=== PATIENT | male | born 1945 | race Caucasian/White ===

== ENCOUNTER 2019-02-15 21:22 | Emergency (ER) | payer MEDICARE, OTHER ==
[~2019-02-15] VITALS: Ht 172.7 cm; Wt 97.5 kg
[2019-02-15 22:38] LABS: BASOPHILS ABSOLUTE AUTO 0.06 K/mm3 (0.00-0.23); BASOPHILS PERCENT AUTO 1 % (0-2); EOSINOPHILS ABSOLUTE AUTO 0.03 K/mm3 (0.00-0.68); EOSINOPHILS PERCENT AUTO 1 % (0-6); Hematocrit 39.8 % (37.0-53.0); Hemoglobin 13.4 g/dL (13.5-17.5); IMMATURE GRAN ABSOLUTE AUTO 0.02 K/mm3 (0.00-0.10); IMMATURE GRAN PERCENT AUTO 0 % (0-1); LYMPHOCYTES ABSOLUTE AUTO 0.32 K/mm3 (0.84-5.20); LYMPHOCYTES PERCENT AUTO 5 % (21-46); MONOCYTES PERCENT AUTO 10 % (4-13); Mean Corpuscular HGB 32.1 pg (26.0-34.0); Mean Corpuscular HGB Conc 33.7 g/dL (31.5-36.5); Mean Corpuscular Volume 95 fL (80-100); Mean Platelet Volume 12.7 fL (9.1-12.4); NEUTROPHILS PERCENT AUTO 83 % (41-73); Platelet Count 67 K/mm3 (150-400); RDW Coefficient Variation 13.5 % (11.7-14.2); Red Blood Cell Count 4.17 M/mm3 (4.30-5.90); White Blood Cell Count 5.93 K/mm3 (4.00-11.30)
[2019-02-15 22:58] LABS: Alanine Aminotransfer (ALT/SGP 35 U/L (12-78); Albumin, Blood 3.2 g/dL (3.4-5.0); Albumin/Globulin Ratio 0.9 (0.8-1.8); Alk Phos 135 U/L (50-136); Anion Gap 9 mmol/L (6-16); Aspartate Aminotrans (AST/SGOT 40 U/L (12-37); Bilirubin, Total 2.5 mg/dL (0.1-1.0); Blood Urea Nitrogen 33 mg/dL (8-24); Bun/Creatinine Ratio 19.1 (12.0-20.0); CO2, Blood 19 mmol/L (21-32); Calcium, Blood 9.5 mg/dL (8.5-10.1); Chloride, Blood 108 mmol/L (98-108); Creatinine, Blood 1.73 mg/dL (0.60-1.20); Globulin, Blood 3.5 g/dL (2.2-4.0); Glomerular Filtration Rate 41 (60-); Glucose, Blood 154 mg/dL (70-99); Potassium, Blood 4.4 mmol/L (3.5-5.5); Sodium, Blood 136 mmol/L (136-145); Total Protein, Blood 6.7 g/dL (6.4-8.2)
[2019-02-15] MEDS ORDERED: LISI5 PO (23:09)
[2019-02-15] MEDS ORDERED: GLIP5 PO (23:09)
[2019-02-15] MEDS ORDERED: FUROSEMIDE20 MG PO (23:10)
[2019-02-15] MEDS ORDERED: POTA8 PO (23:10)
[2019-02-15] MEDS ORDERED: Metoprolol-Hct1 EAC1 PO (23:10)
[2019-02-15] MEDS ORDERED: OMEP20ER PO (23:10)
[2019-02-16 00:40] LABS: Magnesium, Blood 1.4 mg/dL (1.6-2.4); Troponin I <0.015 ng/mL (0.000-0.040)
[2019-02-16 02:19] LABS: Source, Urine Clean Catch
[2019-02-16 02:23] LABS: Bilirubin, Urine Neg (Neg); Blood, Urine 2+ (Neg); Glucose Qualitative, Urine Neg (Neg); Ketones, Urine Neg (Neg); Leukocyte Esterase, Urine 3+ (Neg); Nitrite, Urine Neg (Neg); Protein, Urine 1+ (Neg); Urobilinogen, Urine NORM (Normal); pH, Urine 6.5 (5.0-8.0)
[2019-02-16 02:32] LABS: Amorphous Mod (0-Heavy); Appearance, Urine Hazy (Clear); Bacteria Many /hpf; Color, Urine Yellow (P-Yellow); Red Blood Cells, Urine 0-2 /hpf (0-2); Squamous Epithelial Cells Few /hpf (Few); White Blood Cells, Urine 25-50 /hpf (0-5)
[2019-02-16] MEDS ORDERED: CEFD300 PO (03:04)
== END 2019-02-16 03:47 | disposition home or self-care (01) ==
LOC: ER 21:22
PROVIDERS: Emergency Medicine
DX: N39.0 Urinary tract infection, site not specified (principal); E86.0 Dehydration; R53.1 Weakness; Z85.51 Personal history of malignant neoplasm of bladder; Z88.2 Allergy status to sulfonamides; Z79.899 Other long term (current) drug therapy
CPT/HCPCS: 36415; 71046; 80053; 81001; 83605; 83690; 83735; 83880; 84145; 84443; 84484; 85025; 87077; 87086; 87186; 93005; 93010; 96361; 96365; 96367; 99285-25; J0696; J3475; J7030

== ENCOUNTER → 2019-02-24 | Outpatient (CLI) | payer MEDICARE, OTHER ==
[~2019-02-24] MED LIST: CEFD300 PO; FUROSEMIDE20 MG PO; GLIP5 PO; LISI5 PO; Metoprolol-Hct1 EAC1 PO; OMEP20ER PO; POTA8 PO
[2019-02-24 19:32] LABS: BASOPHILS PERCENT AUTO 2 % (0-2); EOSINOPHILS ABSOLUTE AUTO 0.43 K/mm3 (0.00-0.68); EOSINOPHILS PERCENT AUTO 8 % (0-6); Hematocrit 36.6 % (37.0-53.0); Hemoglobin 12.5 g/dL (13.5-17.5); IMMATURE GRAN ABSOLUTE AUTO 0.04 K/mm3 (0.00-0.10); IMMATURE GRAN PERCENT AUTO 1 % (0-1); LYMPHOCYTES ABSOLUTE AUTO 0.62 K/mm3 (0.84-5.20); LYMPHOCYTES PERCENT AUTO 11 % (21-46); MONOCYTES ABSOLUTE AUTO 0.35 K/mm3 (0.16-1.47); MONOCYTES PERCENT AUTO 6 % (4-13); Mean Corpuscular HGB 32.3 pg (26.0-34.0); Mean Corpuscular HGB Conc 34.2 g/dL (31.5-36.5); Mean Corpuscular Volume 95 fL (80-100); Mean Platelet Volume 12.1 fL (9.1-12.4); NEUTROPHILS PERCENT AUTO 72 % (41-73); Platelet Count 112 K/mm3 (150-400); RDW Coefficient Variation 13.5 % (11.7-14.2); RDW Standard Deviation 46.5 fL (35.1-46.3); Red Blood Cell Count 3.87 M/mm3 (4.30-5.90); White Blood Cell Count 5.44 K/mm3 (4.00-11.30)
[2019-02-24 20:51] LABS: Bun/Creatinine Ratio 20.3 (12.0-20.0); Calcium, Blood 8.4 mg/dL (8.5-10.1); Creatinine, Blood 1.33 mg/dL (0.60-1.20); Potassium, Blood 4.5 mmol/L (3.5-5.5)
== END | disposition home or self-care (01) ==
LOC: LAB SHORT 18:18 → LAB 18:18
PROVIDERS: Hospitalist
DX: N17.9 Acute kidney failure, unspecified (principal); D69.6 Thrombocytopenia, unspecified
CPT/HCPCS: 80048; 85025

== ENCOUNTER 2019-05-22 07:42 | Day surgery (SDC) | payer OTHER ==
[~2019-05-22] VITALS: Ht 172.7 cm; Wt 94.8 kg
[~2019-05-22 07:42] MED LIST changes: +Aspirin EC81 MG PO; +Vitamin D2000 UNIT PO
== END 2019-05-22 10:56 | disposition home or self-care (01) ==
LOC: ORSCSDS 07:42
PROVIDERS: Internal Medicine Gastroenterology
PROC: 0DBL8ZX Excision of Transverse Colon, Via Natural or Artificial Opening Endoscopic, Diagnostic (ICD-10-PCS; principal; 2019-05-22 09:00)
PROC: 0DB58ZX Excision of Esophagus, Via Natural or Artificial Opening Endoscopic, Diagnostic (ICD-10-PCS; principal; 2019-05-22 09:00)
PROC: 0DBN8ZX Excision of Sigmoid Colon, Via Natural or Artificial Opening Endoscopic, Diagnostic (ICD-10-PCS; principal; 2019-05-22 09:00)
PROC: 0DBP8ZX Excision of Rectum, Via Natural or Artificial Opening Endoscopic, Diagnostic (ICD-10-PCS; principal; 2019-05-22 09:00)
PROC: 0DBM8ZX Excision of Descending Colon, Via Natural or Artificial Opening Endoscopic, Diagnostic (ICD-10-PCS; principal; 2019-05-22 09:00)
DX: K22.70 Barrett's esophagus without dysplasia (principal); Z86.010 Personal history of colon polyps; D12.3 Benign neoplasm of transverse colon; D12.4 Benign neoplasm of descending colon; K63.5 Polyp of colon; K62.1 Rectal polyp; K44.9 Diaphragmatic hernia without obstruction or gangrene; K76.6 Portal hypertension; K31.89 Other diseases of stomach and duodenum; K74.60 Unspecified cirrhosis of liver; E11.42 Type 2 diabetes mellitus with diabetic polyneuropathy; E11.22 Type 2 diabetes mellitus with diabetic chronic kidney disease; I12.9 Hypertensive chronic kidney disease with stage 1 through stage 4 chronic kidney disease, or unspecified chronic kidney disease; N18.3 Chronic kidney disease, stage 3 (moderate); Z79.84 Long term (current) use of oral hypoglycemic drugs; Z79.899 Other long term (current) drug therapy; Z79.82 Long term (current) use of aspirin
CPT/HCPCS: 82947; 88305; J2250; J2704; J7120

== ENCOUNTER 2020-03-21 13:01 | Inpatient (IN) | payer OTHER ==
[~2020-03-21] VITALS: Ht 180.3 cm; Wt 97.5 kg
[2020-03-21 13:23] LABS: Source, Urine Catheter
[2020-03-21 13:32] LABS: Appearance, Urine Turbid (Clear); Bilirubin, Urine Neg (Neg); Blood, Urine 2+ (Neg); Color, Urine Yellow (P-Yellow); Glucose Qualitative, Urine Neg (Neg); Ketones, Urine Neg (Neg); Leukocyte Esterase, Urine 3+ (Neg); Nitrite, Urine Neg (Neg); Protein, Urine 1+ (Neg); Urobilinogen, Urine 1+ (Normal)
[2020-03-21 13:33] LABS: BASOPHILS ABSOLUTE AUTO 0.04 K/mm3 (0.00-0.23); BASOPHILS PERCENT AUTO 1 % (0-2); EOSINOPHILS ABSOLUTE AUTO 0.06 K/mm3 (0.00-0.68); EOSINOPHILS PERCENT AUTO 2 % (0-6); Hematocrit 38.6 % (37.0-53.0); Hemoglobin 12.7 g/dL (13.5-17.5); IMMATURE GRAN ABSOLUTE AUTO 0.01 K/mm3 (0.00-0.10); IMMATURE GRAN PERCENT AUTO 0 % (0-1); LYMPHOCYTES ABSOLUTE AUTO 0.22 K/mm3 (0.84-5.20); LYMPHOCYTES PERCENT AUTO 7 % (21-46); MONOCYTES ABSOLUTE AUTO 0.31 K/mm3 (0.16-1.47); MONOCYTES PERCENT AUTO 9 % (4-13); Mean Corpuscular HGB 30.8 pg (26.0-34.0); Mean Corpuscular HGB Conc 32.9 g/dL (31.5-36.5); Mean Corpuscular Volume 94 fL (80-100); Mean Platelet Volume 12.8 fL (9.1-12.4); NEUTROPHILS ABSOLUTE AUTO 2.72 K/mm3 (1.96-9.15); NEUTROPHILS PERCENT AUTO 81 % (41-73); Platelet Count 53 K/mm3 (150-400); RDW Coefficient Variation 14.5 % (11.7-14.2); RDW Standard Deviation 49.6 fL (35.1-46.3); Red Blood Cell Count 4.13 M/mm3 (4.30-5.90); White Blood Cell Count 3.36 K/mm3 (4.00-11.30)
[2020-03-21 13:45] LABS: Albumin, Blood 2.8 g/dL (3.4-5.0); Albumin/Globulin Ratio 0.9 (0.8-1.8); Bilirubin, Total 2.3 mg/dL (0.1-1.0); Bun/Creatinine Ratio 14.3 (12.0-20.0); Calcium, Blood 9.4 mg/dL (8.5-10.1); Creatinine, Blood 1.61 mg/dL (0.60-1.20); Potassium, Blood 4.2 mmol/L (3.5-5.5); Total Protein, Blood 5.8 g/dL (6.4-8.2)
[2020-03-21 13:45] LABS: Amorphous Light (0-Heavy); Bacteria Many /hpf; Mucus Light (0-Heavy); Red Blood Cells, Urine 0-2 /hpf (0-2); Squamous Epithelial Cells Not Seen /hpf (Few)
[2020-03-21] MEDS ORDERED: LISI5 PO (13:55)
[2020-03-21] MEDS ORDERED: GLIP5 PO (13:55)
[2020-03-21] MEDS ORDERED: METOPROLOL-HCT1 EACH PO (13:55)
[2020-03-21] MEDS ORDERED: POTA8 PO (13:56)
[2020-03-21] MEDS ORDERED: FURO20 PO (13:56)
[2020-03-21] MEDS ORDERED: OMEP20ER PO (13:56)
[2020-03-21 14:31] LABS: Base Excess Venous 0 mmol/L; PCO2 Venous 38.2 mmHg (38-42); PO2 Venous 38.8 mmHg (38-42); pH Blood Venous 7.42 (7.34-7.37)
[2020-03-21 14:44] LABS: International Normalized Ratio 1.17; Prothrombin Time Results 12.4 Sec (9.7-11.5)
[2020-03-21 15:43] LABS: U Amphetamine Screen Not Detected; U Barbituate Screen Not Detected; U Benzodiazapine Screen Not Detected; U Buprenorphine Screen Not Detected; U Cannabinoids Screen Not Detected; U Cocaine Screen Not Detected; U Methadone Screen Not Detected; U Methamphetamine Screen Not Detected; U Opiates Screen Not Detected; U Oxycodone Screen Not Detected; U Phencyclidine Screen Not Detected; U Propoxyphene Screen Not Detected
[2020-03-21 16:03] LABS: Influenza A, PCR Negative (NEGATIVE); Influenza B, PCR Negative (NEGATIVE); Resp Syncytial Virus, PCR Negative (NEGATIVE); SARS-Cov-2 (COVID-19) PCR, MMC Negative (NEGATIVE)
--- NOTE | 2020-03-21 22:26 | NUR ---
PT NEW ADMIT ARRIVED TO UNIT AT 1951 VIA STRETCHER. PT IS LETHARGIC, AROUSIBLE TO VOICE BUT TAKES SOME TIME TO RESPOND. A/O X0 AT THIS TIME. OPENS EYES SLOWLY WHEN STAFF TALKS TO HIM AND GOES BACK TO SLEEP. COOL WASHCLOTH APPLIED TO FOREHEAD, ROOM TEMP TURNED DOWN, ONLY THIN SHEET IN PLACE COVER. WILL CONTINUE TO MONITOR. BED ALARM IN PLACE, CALL LIGHT WITH REACH. 2215 PT APPEARS A LITTLE MORE ALERT. PT RESPONDS RIGHT AFTER WHEN CALLED COMPARED TO A DELAYED RESPONSE EARILER. TEMP ELEVATED TO 101.6. ICE PACK APPLIED TO BILATERAL AXILLARY, PO TYLENOL GIVEN. PT IS A/O X1 TO SELF. CONTINOUS IV NS INFUSION ORDERED. BED ALARM IN PLACE. WILL CONTINUE TO MONITOR.
[2020-03-22 05:37] LABS: BASOPHILS ABSOLUTE AUTO 0.03 K/mm3 (0.00-0.23); BASOPHILS PERCENT AUTO 1 % (0-2); EOSINOPHILS ABSOLUTE AUTO 0.09 K/mm3 (0.00-0.68); EOSINOPHILS PERCENT AUTO 3 % (0-6); Hematocrit 35.7 % (37.0-53.0); Hemoglobin 11.6 g/dL (13.5-17.5); IMMATURE GRAN ABSOLUTE AUTO 0.01 K/mm3 (0.00-0.10); IMMATURE GRAN PERCENT AUTO 0 % (0-1); LYMPHOCYTES ABSOLUTE AUTO 0.37 K/mm3 (0.84-5.20); LYMPHOCYTES PERCENT AUTO 14 % (21-46); MONOCYTES ABSOLUTE AUTO 0.29 K/mm3 (0.16-1.47); MONOCYTES PERCENT AUTO 11 % (4-13); Mean Corpuscular HGB Conc 32.5 g/dL (31.5-36.5); Mean Corpuscular Volume 96 fL (80-100); Mean Platelet Volume 12.9 fL (9.1-12.4); NEUTROPHILS ABSOLUTE AUTO 1.86 K/mm3 (1.96-9.15); NEUTROPHILS PERCENT AUTO 70 % (41-73); RDW Coefficient Variation 14.6 % (11.7-14.2); RDW Standard Deviation 51.3 fL (35.1-46.3); Red Blood Cell Count 3.74 M/mm3 (4.30-5.90); White Blood Cell Count 2.65 K/mm3 (4.00-11.30)
[2020-03-22 05:46] LABS: Platelet Count 44 K/mm3 (150-400)
[2020-03-22 05:58] LABS: Bun/Creatinine Ratio 17.1 (12.0-20.0); Calcium, Blood 8.3 mg/dL (8.5-10.1); Creatinine, Blood 1.64 mg/dL (0.60-1.20)
--- NOTE | 2020-03-22 07:16 | NUR ---
SHALE PROCESSING TECHNICIAN SUMMARY PT MUCH MORE A/O STARTING AROUND 0300. PT ABLE TO OPEN EYES SPONTANEOUSLY AND MAKE SENSIBLE CONVERSATION. ABLE TO COMMUNICATE NEEDS, SPEECH IS STILL SLOW AND SOMETIMES HAS HARD TIME COMING UP WITH THE RIGHT WORDS. PT KNOWS WHO HE IS, WHERE HE IS AT, MONTH, YEAR, AND WHY HE IS IN THE HOSPITAL. 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 ORDERED IV FLUIDS GIVEN OVERNIGHT. BODY TEMPERATURE IS NOW STABLE. CALL LIGHT WITH REACH, BED ALARM IN PLACE. REPORT GIVEN TO AM NURSE.
--- NOTE | 2020-03-22 17:17 | NUR ---
PATIENT A/OX3, CONFUSED ABOUT THE DATE. 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 HIDA SCAN ORDERED FOR TODAY, BUT BLOOD SUGAR WAS 47 WHEN IMAGING CAME TO GET HIM. SCAN WAS PUT ON HOLD UNTIL TOMORROW MORNING AND PATIENT WAS FED. BLOOD SUGAR CAME UP TO 110. RECEIVING FLAGYL AND CEFEPIME. UROSTOMY IN PLACE DRAINING TO CATHETER BAG. URINE IS FRIDA WITH SEDIMENT AND FOUL ODOR. PATIENT HAD DIARRHEA TODAY X3, WILL HOLD STOOL SOFTNERS. ABLE TO TRANSFER TO BSC WITH FWW AND SBA. LUNGS CLEAR, ON RA. WILL BE NPO AFTER 0300 ON 03/23/20 FOR HIDA SCAN AT 0900 TOMORROW.
--- NOTE | 2020-03-23 04:31 | NUR ---
LOOSE STOOL PT HAS HAD 4 LOOSE/LIQUID ORANGE BROWN BM THIS SHIFT, PM STOOL SOFTENERS HELD BECAUSE PT STATED HE HAD 3 LIQUID BM ON DAY SHIFT. PT DID RECIEVE AM STOOL SOFTENERS, INFORMED DR PEARCE & HE ORDERED A GI PANEL. WILL MONITOR PT.
--- NOTE | 2020-03-23 06:05 | NUR ---
SHIFT SUMMARY AOX4 THIS SHIFT, ANSWERS ORIENTATION QUESTIONS CORRECTLY & FOLLOWS DIRECTIONS. DENIES PAIN, N/V, DYSPNEA. VSS. HAD 4 LIQUID/LOOSE BM THIS SHIFT & PER REPORT 3 ON DAY SHIFT YESTERDAY, READ PREVIOUS NOTE. HAS BEEN NPO SINCE 0300 FOR HIDA SCAN THIS AM 03/23/20. CBG CHECKED Q4 WHILE NPO SINCE CBG TENDS TO RUN LOW. HS CBG @72, GAVE SNACK SO CBG WOULD NOT DROP FURTHER & THIS AM CBG @105. UROSTOMY PATENT & DRAINING DARK YELLOW URINE c SEDIMENT. CALL LIGHT IN REACH & PT ABLE TO MAKE NEEDS KNOWN. WILL MONITOR UNTIL DAY SHIFT NURSE ASSUMES CARE.
[2020-03-23 09:01] LABS: BASOPHILS ABSOLUTE AUTO 0.05 K/mm3 (0.00-0.23); BASOPHILS PERCENT AUTO 1 % (0-2); EOSINOPHILS ABSOLUTE AUTO 0.48 K/mm3 (0.00-0.68); EOSINOPHILS PERCENT AUTO 10 % (0-6); Hemoglobin 10.7 g/dL (13.5-17.5); IMMATURE GRAN ABSOLUTE AUTO 0.01 K/mm3 (0.00-0.10); IMMATURE GRAN PERCENT AUTO 0 % (0-1); LYMPHOCYTES ABSOLUTE AUTO 0.74 K/mm3 (0.84-5.20); LYMPHOCYTES PERCENT AUTO 16 % (21-46); MONOCYTES ABSOLUTE AUTO 0.53 K/mm3 (0.16-1.47); MONOCYTES PERCENT AUTO 11 % (4-13); Mean Corpuscular HGB 30.9 pg (26.0-34.0); Mean Corpuscular HGB Conc 32.4 g/dL (31.5-36.5); Mean Corpuscular Volume 95 fL (80-100); Mean Platelet Volume 12.5 fL (9.1-12.4); NEUTROPHILS ABSOLUTE AUTO 2.88 K/mm3 (1.96-9.15); NEUTROPHILS PERCENT AUTO 61 % (41-73); Platelet Count 53 K/mm3 (150-400); RDW Coefficient Variation 14.5 % (11.7-14.2); RDW Standard Deviation 50.4 fL (35.1-46.3); Red Blood Cell Count 3.46 M/mm3 (4.30-5.90); White Blood Cell Count 4.69 K/mm3 (4.00-11.30)
[2020-03-23 09:21] LABS: Albumin, Blood 2.2 g/dL (3.4-5.0); Albumin/Globulin Ratio 0.8 (0.8-1.8); Bilirubin, Total 1.1 mg/dL (0.1-1.0); Bun/Creatinine Ratio 18.9 (12.0-20.0); Creatinine, Blood 1.59 mg/dL (0.60-1.20); Globulin, Blood 2.6 g/dL (2.2-4.0); Potassium, Blood 3.4 mmol/L (3.5-5.5); Total Protein, Blood 4.8 g/dL (6.4-8.2)
[2020-03-23 11:38] LABS: Campylobacter Sp Not Detected (NOT DETECT)
[2020-03-23 11:39] LABS: Adenovirus F 40/41 Not Detected (NOT DETECT); Astrovirus Not Detected (NOT DETECT); Cryptosporidium Not Detected (NOT DETECT); Cyclospora Cayetanensis Not Detected (NOT DETECT); E. Coli O157 Not Detected (NOT DETECT); Entamoeba Histolytica Not Detected (NOT DETECT); Enteroaggregative E. coli-EAEC Not Detected (NOT DETECT); Enteropathogenic E. coli-EPEC Not Detected (NOT DETECT); Enterotoxigenic E. coli-ETEC Not Detected (NOT DETECT); Giardia Lamblia Not Detected (NOT DETECT); Norovirus GI/GII Not Detected (NOT DETECT); Plesiomonas Shigelloides Not Detected (NOT DETECT); Rotavirus A Not Detected (NOT DETECT); Salmonella Sp Not Detected (NOT DETECT); Sapovirus Not Detected (NOT DETECT); Shiga Toxin-prod E. coli-STEC Not Detected (NOT DETECT); Shigella/Enteroin E. coli-EIEC Not Detected (NOT DETECT); Vibrio Cholerae Not Detected (NOT DETECT); Vibrio Sp Not Detected (NOT DETECT); Yersinia Enterocolitica Not Detected (NOT DETECT)
--- NOTE | 2020-03-23 17:52 | NUR ---
PATIENT A/OX4 TODAY, UP WITH SBA TO RESTROOM. VSS, ON RA. HIDA SCAN COMPLETED TODAY. PATIENT DENIES ANY PAIN OR DISCOMFORT. 2+ EDEMA TO ROAS, SKIN INTACT. UROSTOMY DRAINING TO CATHETER BAG. TOLERATING ADA DIET, ACHS BLOOD SUGARS. WORKED WITH PT THIS EVENING. 22G IV TO L SHOULDER WNL AND SL. CALM AND COOPERATIVE WITH CARE, ABLE TO MAKE NEEDS KNOWN.
--- NOTE | 2020-03-23 19:37 | NUR ---
Awake. Assisted to bathroom, urostomy flowing koby. Assisted back to bed. Call light in reach
[2020-03-24 05:32] LABS: BASOPHILS ABSOLUTE AUTO 0.06 K/mm3 (0.00-0.23); BASOPHILS PERCENT AUTO 1 % (0-2); EOSINOPHILS ABSOLUTE AUTO 0.61 K/mm3 (0.00-0.68); EOSINOPHILS PERCENT AUTO 14 % (0-6); Hematocrit 32.2 % (37.0-53.0); Hemoglobin 10.7 g/dL (13.5-17.5); IMMATURE GRAN ABSOLUTE AUTO 0.01 K/mm3 (0.00-0.10); IMMATURE GRAN PERCENT AUTO 0 % (0-1); LYMPHOCYTES ABSOLUTE AUTO 0.69 K/mm3 (0.84-5.20); LYMPHOCYTES PERCENT AUTO 16 % (21-46); MONOCYTES ABSOLUTE AUTO 0.46 K/mm3 (0.16-1.47); MONOCYTES PERCENT AUTO 11 % (4-13); Mean Corpuscular HGB 30.8 pg (26.0-34.0); Mean Corpuscular HGB Conc 33.2 g/dL (31.5-36.5); Mean Corpuscular Volume 93 fL (80-100); Mean Platelet Volume 12.6 fL (9.1-12.4); NEUTROPHILS ABSOLUTE AUTO 2.43 K/mm3 (1.96-9.15); NEUTROPHILS PERCENT AUTO 57 % (41-73); Platelet Count 58 K/mm3 (150-400); RDW Coefficient Variation 14.4 % (11.7-14.2); RDW Standard Deviation 48.9 fL (35.1-46.3); Red Blood Cell Count 3.47 M/mm3 (4.30-5.90); White Blood Cell Count 4.26 K/mm3 (4.00-11.30)
[2020-03-24 05:49] LABS: Albumin, Blood 2.1 g/dL (3.4-5.0); Albumin/Globulin Ratio 0.8 (0.8-1.8); Bilirubin, Total 1.3 mg/dL (0.1-1.0); Bun/Creatinine Ratio 23.3 (12.0-20.0); Calcium, Blood 8.4 mg/dL (8.5-10.1); Creatinine, Blood 1.33 mg/dL (0.60-1.20); Globulin, Blood 2.7 g/dL (2.2-4.0); Potassium, Blood 3.9 mmol/L (3.5-5.5); Total Protein, Blood 4.8 g/dL (6.4-8.2)
--- NOTE | 2020-03-24 05:54 | NUR ---
SHIFT SUMMARY PT HAS BEEN RESTING QUIETLY WITH EFW INTERRUPTIONS. IV ANTIBIOTICS ADMINISTERED PER JUN. UROSTOMY DRAINING. CALL LIGHT IN REACH. NO COMPLAINTS OF PAIN.
--- NOTE | 2020-03-25 05:59 | NUR ---
PHOTOGRAPHER SUMMARY PT A/O X4. SLEPT WELL TONIGHT. DENIES PAIN, SOB. VSS. NO ACUTE CHANGES. CALL LIGHT WITHIN REACH. PLEASANT AND CALLS APPROPRIATELY.
[2020-03-25] MEDS ORDERED: ACET325 PO (13:04)
[2020-03-25] MEDS ORDERED: Amoxicillin500 MG PO (13:05)
[2020-03-25] MEDS ORDERED: AZO CRANBERRY PO (13:06)
--- NOTE | 2020-03-25 14:56 | NUR ---
DISCHARGED HOME. TAKEN TO 'S PERSONAL VEHICLE AT 1400. PATIENT VERBALIZED UNDERSTANDING OF THE DISCHARGE PAPERWORK AND INSTRUCTIONS. ALL OF HIS QUESTIONS WERE ANSWERED. ALL OF HIS BELONGINGS WERE IN HIS POSSESSION.
== END 2020-03-25 14:00 | disposition home health service (06) | DRG 393 ==
LOC: ER 13:01 → MEDS 17:17
PROVIDERS: Emergency Medicine; Internal Medicine; ADMIT Hospitalist
DX: K94.02 Colostomy infection (principal); G93.41 Metabolic encephalopathy; K80.00 Calculus of gallbladder with acute cholecystitis without obstruction; N39.0 Urinary tract infection, site not specified; N17.9 Acute kidney failure, unspecified; R65.10 Systemic inflammatory response syndrome (SIRS) of non-infectious origin without acute organ dysfunction; D61.818 Other pancytopenia; K76.6 Portal hypertension; Z85.51 Personal history of malignant neoplasm of bladder; I12.9 Hypertensive chronic kidney disease with stage 1 through stage 4 chronic kidney disease, or unspecified chronic kidney disease; E11.22 Type 2 diabetes mellitus with diabetic chronic kidney disease; N18.30 Chronic kidney disease, stage 3 unspecified; K75.81 Nonalcoholic steatohepatitis (NASH); D63.1 Anemia in chronic kidney disease; K74.60 Unspecified cirrhosis of liver; Z93.6 Other artificial openings of urinary tract status; Z87.891 Personal history of nicotine dependence
CPT/HCPCS: 0097U; 0241U; 36415; 70450; 71045; 74176; 76705; 78226; 80048; 80053; 81001; 82140; 82803; 82947; 83605; 84484; 85025; 85610; 85730; 87040; 87086; 93005; 93010; 96361; 96365; 96367; 97110; 97116; 97162; 97165; 97535; 99285-25; A9270; A9270-GY; A9537; J0692; J7030; J7042; J7120

== ENCOUNTER 2020-07-08 09:26 | Day surgery (SDC) | payer OTHER ==
[~2020-07-08] VITALS: Ht 172.7 cm; Wt 87.5 kg
[~2020-07-08 09:26] MED LIST changes: +ACET325 PO; +AZO CRANBERRY PO; +Amoxicillin500 MG PO; +FURO20 PO; +LOPRESSOR HCT1 EACH PO; +METOPROLOL-HCT1 EACH PO; +VITAMIN D325 MC3 PO
--- NOTE | 2020-07-08 10:09 | NUR ---
07/08/20 Lesly Godoy 5 IV ATTEMPTS. THREE IV ATTEMPTS ON RIGHT ARM. TWO ON LEFT ARM. FIFTH ONE SUCCESSFUL. PT TOLERATED PROCEDURE WELL
== END 2020-07-08 11:24 | disposition home or self-care (01) ==
LOC: ORSCSDS 09:26
PROVIDERS: Internal Medicine Gastroenterology
PROC: 0DBL8ZX Excision of Transverse Colon, Via Natural or Artificial Opening Endoscopic, Diagnostic (ICD-10-PCS; principal; 2020-07-08 10:45)
DX: Z12.11 Encounter for screening for malignant neoplasm of colon (principal); Z86.010 Personal history of colon polyps; D12.3 Benign neoplasm of transverse colon; K64.8 Other hemorrhoids; K57.30 Diverticulosis of large intestine without perforation or abscess without bleeding; K22.70 Barrett's esophagus without dysplasia; E11.9 Type 2 diabetes mellitus without complications; K74.60 Unspecified cirrhosis of liver; I10 Essential (primary) hypertension; D47.3 Essential (hemorrhagic) thrombocythemia; K75.81 Nonalcoholic steatohepatitis (NASH); Z87.891 Personal history of nicotine dependence; K76.6 Portal hypertension; K31.89 Other diseases of stomach and duodenum; Z79.82 Long term (current) use of aspirin; Z79.899 Other long term (current) drug therapy
CPT/HCPCS: 82947; 88305; J2250; J2704; J7120

== ENCOUNTER 2020-10-07 17:05 | Observation (INO) | payer OTHER ==
[~2020-10-07] VITALS: Ht 177.8 cm; Wt 84.5 kg
[2020-10-07 18:56] LABS: Source, Urine Catheter
[2020-10-07 19:03] LABS: Bilirubin, Urine Neg (Neg); Blood, Urine 1+ (Neg); Glucose Qualitative, Urine Neg (Neg); Ketones, Urine Neg (Neg); Leukocyte Esterase, Urine 3+ (Neg); Nitrite, Urine Neg (Neg); Protein, Urine Neg (Neg); Urobilinogen, Urine 1+ (Normal)
[2020-10-07 19:05] LABS: BASOPHILS ABSOLUTE AUTO 0.05 K/mm3 (0.00-0.23); BASOPHILS PERCENT AUTO 1 % (0-2); EOSINOPHILS PERCENT AUTO 7 % (0-6); Hematocrit 33.8 % (37.0-53.0); Hemoglobin 11.8 g/dL (13.5-17.5); IMMATURE GRAN ABSOLUTE AUTO 0.01 K/mm3 (0.00-0.10); IMMATURE GRAN PERCENT AUTO 0 % (0-1); LYMPHOCYTES ABSOLUTE AUTO 0.72 K/mm3 (0.84-5.20); LYMPHOCYTES PERCENT AUTO 16 % (21-46); MONOCYTES ABSOLUTE AUTO 0.37 K/mm3 (0.16-1.47); MONOCYTES PERCENT AUTO 8 % (4-13); Mean Corpuscular HGB 31.7 pg (26.0-34.0); Mean Corpuscular HGB Conc 34.9 g/dL (31.5-36.5); Mean Corpuscular Volume 91 fL (80-100); Mean Platelet Volume 12.3 fL (9.1-12.4); NEUTROPHILS ABSOLUTE AUTO 2.96 K/mm3 (1.96-9.15); NEUTROPHILS PERCENT AUTO 67 % (41-73); Platelet Count 87 K/mm3 (150-400); RDW Coefficient Variation 15.2 % (11.7-14.2); RDW Standard Deviation 50.7 fL (35.1-46.3); Red Blood Cell Count 3.72 M/mm3 (4.30-5.90); White Blood Cell Count 4.41 K/mm3 (4.00-11.30)
[2020-10-07 19:10] LABS: Appearance, Urine Hazy (Clear); Color, Urine Yellow (P-Yellow)
[2020-10-07 19:15] LABS: White Blood Cells, Urine 25-50 /hpf (0-5)
[2020-10-07 19:16] LABS: Amorphous Heavy (0-Heavy); Bacteria Mod /hpf; Red Blood Cells, Urine 0-2 /hpf (0-2); Squamous Epithelial Cells Few /hpf (Few)
[2020-10-07 19:22] LABS: U Amphetamine Screen Not Detected; U Barbituate Screen Not Detected; U Benzodiazapine Screen Not Detected; U Buprenorphine Screen Not Detected; U Cannabinoids Screen Not Detected; U Cocaine Screen Not Detected; U Methadone Screen Not Detected; U Methamphetamine Screen Not Detected; U Opiates Screen Not Detected; U Oxycodone Screen Not Detected; U Phencyclidine Screen Not Detected; U Propoxyphene Screen Not Detected
[2020-10-07 19:27] LABS: Alanine Aminotransfer (ALT/SGP 37 U/L (12-78); Albumin/Globulin Ratio 0.9 (0.8-1.8); Alk Phos 172 U/L (50-136); Anion Gap 7 mmol/L (6-16); Aspartate Aminotrans (AST/SGOT 47 U/L (12-37); Bilirubin, Total 2.7 mg/dL (0.1-1.0); Blood Urea Nitrogen 40 mg/dL (8-24); Bun/Creatinine Ratio 19.6 (12.0-20.0); CO2, Blood 20 mmol/L (21-32); CPK Creatine Kinase 52 U/L (39-308); Calcium, Blood 9.3 mg/dL (8.5-10.1); Chloride, Blood 116 mmol/L (98-108); Creatinine, Blood 2.04 mg/dL (0.60-1.20); Ethanol (Alcohol), Blood, Med <3 mg/dL; Globulin, Blood 3.3 g/dL (2.2-4.0); Glomerular Filtration Rate 34 (60-); Glucose, Blood 106 mg/dL (70-99); Potassium, Blood 4.1 mmol/L (3.5-5.5); Sodium, Blood 143 mmol/L (136-145); Total Protein, Blood 6.3 g/dL (6.4-8.2)
[2020-10-07 19:28] LABS: Creatine Kinase MB <1.0 ng/mL (0.0-3.6); Creatine Kinase MB Index Unable to Calculate (0.0-4.0)
--- NOTE | 2020-10-08 00:28 | NUR ---
PATIENT IS A NEW ADMIT FROM THE ED. ONE ASSIST TRANSFER FROM [facility] TO BED. AXOX 3 REPORTING HIS MENTATION IS IMPROVING AND CAN RECALL MOST PREVIOUS EVENTS OF THE DAY. ONE ASSIST TO THE BATHROOM. UROSTOMY RLQ IN PLACE AND SELF EMPTIES. REPORTED BLADDER CA AND BLADDER REMOVAL SURGERY. ON ROOM AIR. DENIES CHEST PAIN, SOB, AND N/V. BRUISE WITH SKIN TEAR TO LEFT KNEE. ORIENTED TO ROOM AND CALL LIGHT SYSTEM. REPORTS WANT TO SLEEP KEEPING TV OFF. TM
--- NOTE | 2020-10-08 04:14 | NUR ---
SHIFT SUMMARY PATIENT HAD NO ACUTE CHANGES OBSERVED. AXOX 3 AND MENTATION IMPROVED T/O SHIFT. PATIENT ABLE TO REMEMBER MOST EVENTS OF THE DAY AND NOW INCLUDING HIS PHONE NUMBER. STILL NOT RECALLING HIS MEALS FROM THE DAY. DENIES PAIN, SOB, AND N/V. ONE ASSIST TO BATHROOM. UROSTOMY INTACT AND HE SELF EMPTIES. ON ROOM AIR. VSS/AFEBRILE. REPORTS HX OF AMS IF HE GETS UTI. ABLE TO SLEEP MOST OF THE SHIFT. CALL LIGHT IN REACH. BED IN LOWEST POSITION. WILL CONTINUE TO MONITOR UNTIL DAY SHIFT NURSE ASSUMES CARE.
[2020-10-08 05:25] LABS: BASOPHILS ABSOLUTE AUTO 0.05 K/mm3 (0.00-0.23); BASOPHILS PERCENT AUTO 2 % (0-2); EOSINOPHILS ABSOLUTE AUTO 0.23 K/mm3 (0.00-0.68); EOSINOPHILS PERCENT AUTO 8 % (0-6); Hematocrit 30.3 % (37.0-53.0); Hemoglobin 10.4 g/dL (13.5-17.5); IMMATURE GRAN ABSOLUTE AUTO 0.01 K/mm3 (0.00-0.10); IMMATURE GRAN PERCENT AUTO 0 % (0-1); LYMPHOCYTES ABSOLUTE AUTO 0.74 K/mm3 (0.84-5.20); LYMPHOCYTES PERCENT AUTO 25 % (21-46); MONOCYTES ABSOLUTE AUTO 0.28 K/mm3 (0.16-1.47); MONOCYTES PERCENT AUTO 10 % (4-13); Mean Corpuscular HGB 31.6 pg (26.0-34.0); Mean Corpuscular HGB Conc 34.3 g/dL (31.5-36.5); Mean Corpuscular Volume 92 fL (80-100); Mean Platelet Volume 12.4 fL (9.1-12.4); NEUTROPHILS ABSOLUTE AUTO 1.64 K/mm3 (1.96-9.15); NEUTROPHILS PERCENT AUTO 56 % (41-73); Platelet Count 63 K/mm3 (150-400); RDW Coefficient Variation 15.4 % (11.7-14.2); RDW Standard Deviation 52.2 fL (35.1-46.3); Red Blood Cell Count 3.29 M/mm3 (4.30-5.90); White Blood Cell Count 2.95 K/mm3 (4.00-11.30)
[2020-10-08 05:57] LABS: Bun/Creatinine Ratio 20.1 (12.0-20.0); Calcium, Blood 8.6 mg/dL (8.5-10.1); Creatinine, Blood 1.94 mg/dL (0.60-1.20); Potassium, Blood 3.6 mmol/L (3.5-5.5)
--- NOTE | 2020-10-08 19:07 | NUR ---
SHIFT SUMMARY PT IS A&O, PLEASANT AND CO-OP. ADMITTED FOR ENCEPHALOPATHY R/T UTI AND POSSIBLY AMONIA LEVEL. PT HAS UROSTOMY D/T HX OF BLADDER CA. DOES SELF CARE. NIGHT BAG PROVIDED. REQUESTED SOFT DIET THIS AM HIS DENTURES WERE AT HOME. DAUGHTER BROUGHT THEM IN THIS AFTERNOON. LACTULOSE ORDERED THIS AFTERNOON D/T AMONIA LEVEL. PT HAS RECENTLY STARTED HAVING LOOSE STOOLS D/T LACTULOSE. PT WAS HOPING TO GO HOME TODAY, BUT WILL NEED TO STAY TONIGHT AND RODDY AMONIA LEVEL IN AM. PT HAS BEEN VERY PLEASANT. USING CALL LT APPROPRIATELY. REPORT GIVEN TO ONCOMING RN. CALL LT IN REACH.
--- NOTE | 2020-10-08 19:40 | NUR ---
[facility] AOX3. COOPERATIVE. STATES HE IS WILLING TO DO ANYTHING TO GET HOME TO HIS WHO JUST GOT OUT OF REHAB. DAUGHTER IS AT HOME WITH HER AND SO HE IS WANTING TO GET HOME TO SEE HER. ALREADY HAVING LOOSE BOWEL MOVEMENTS AND IS ABLE TO GET TO THE BATHROOM IN DOING SO. ABDOMIN SOFT, WITH HYPERACTIVE BT. NO NAUSEA. STATES HE IS FEELING GOOD OTHER THEN GETTING UP AND GOING TO THE BATHROOM FREQUENTLY. DENIES PAIN OR DISCOMFORT. LUNGS ARE CLEAR. HR REGULAR. FALL PROTOCOL IN PLACE.
--- NOTE | 2020-10-08 20:29 | NUR ---
MEDICATED WITH PM MEDS. ASSISTED TO BATHROOM. ABLE TO WALK WITH WALKER WIHT NO PROBLEMS. URINARY BAG ATTACHED TO UROSTOMY. INSTRUCTED TO PULL CORD WHEN DONE.
--- NOTE | 2020-10-08 22:00 | NUR ---
RESTING BACK IN BED. DENIES ANY NEEDS OR CONCERNS. WATCHING TV. CALL LIGHT IN REACH. WILL CONTINUE TO MONITOR.
--- NOTE | 2020-10-09 05:26 | NUR ---
SHIFT SUMMARY: AOX3. WANTING TO GO HOME TO HIS , WHO JUST GOT OUT OF SNF. FEELING BETTER, USEING THE CALL LIGHT APPROPRIATLY. VS WNL, AFEBRILE. NO PAIN. NO NAUSEA. SEVERAL LOOSE BM'S T/O THE NIGHT. EDUCATED ON TAKING LACTOLOSE AND THE IMPORTANCE OF IT. SLEPT WELL T/O THE SHIFT EXCEPT TO USE THE BATHROOM. AWAITING FOR LAB WORK TO COME BACK. NO ACUTE CHANGES THIS SHIFT. CALL LIGHT IN REACH.
[2020-10-09 05:30] LABS: BASOPHILS ABSOLUTE AUTO 0.04 K/mm3 (0.00-0.23); BASOPHILS PERCENT AUTO 1 % (0-2); EOSINOPHILS ABSOLUTE AUTO 0.19 K/mm3 (0.00-0.68); EOSINOPHILS PERCENT AUTO 6 % (0-6); Hematocrit 29.5 % (37.0-53.0); IMMATURE GRAN ABSOLUTE AUTO 0.01 K/mm3 (0.00-0.10); IMMATURE GRAN PERCENT AUTO 0 % (0-1); LYMPHOCYTES ABSOLUTE AUTO 0.67 K/mm3 (0.84-5.20); LYMPHOCYTES PERCENT AUTO 21 % (21-46); MONOCYTES ABSOLUTE AUTO 0.26 K/mm3 (0.16-1.47); MONOCYTES PERCENT AUTO 8 % (4-13); Mean Corpuscular HGB 31.7 pg (26.0-34.0); Mean Corpuscular HGB Conc 33.9 g/dL (31.5-36.5); Mean Corpuscular Volume 94 fL (80-100); Mean Platelet Volume 12.5 fL (9.1-12.4); NEUTROPHILS ABSOLUTE AUTO 1.99 K/mm3 (1.96-9.15); NEUTROPHILS PERCENT AUTO 63 % (41-73); Platelet Count 68 K/mm3 (150-400); RDW Coefficient Variation 15.2 % (11.7-14.2); RDW Standard Deviation 52.3 fL (35.1-46.3); Red Blood Cell Count 3.15 M/mm3 (4.30-5.90); White Blood Cell Count 3.16 K/mm3 (4.00-11.30)
[2020-10-09 05:40] LABS: Albumin, Blood 2.6 g/dL (3.4-5.0); Albumin/Globulin Ratio 0.9 (0.8-1.8); Bilirubin, Total 1.4 mg/dL (0.1-1.0); Bun/Creatinine Ratio 19.1 (12.0-20.0); Calcium, Blood 8.5 mg/dL (8.5-10.1); Creatinine, Blood 1.99 mg/dL (0.60-1.20); Globulin, Blood 2.8 g/dL (2.2-4.0); Potassium, Blood 3.8 mmol/L (3.5-5.5); Total Protein, Blood 5.4 g/dL (6.4-8.2)
[2020-10-09] MEDS ORDERED: DOCU100 PO (12:10)
[2020-10-09] MEDS ORDERED: HYDCHL25 PO (12:11)
[2020-10-09] MEDS ORDERED: LACT10SY PO (12:12)
[2020-10-09] MEDS ORDERED: DULCOLAX400 MG/5 M PO (12:13)
[2020-10-09] MEDS ORDERED: SENNA LAXATIVE8.6 MG PO (12:14)
[2020-10-09] MEDS ORDERED: VISBIOME 112.51 EACH PO (12:15)
[2020-10-09] MEDS ORDERED: LEVFLO500 PO (12:16)
[2020-10-09] MEDS ORDERED: METO25 PO (12:27)
[2020-10-09] MEDS ORDERED: LISI5 PO (12:54)
--- NOTE | 2020-10-09 13:31 | NUR ---
DISCHARGE PT IS A/O X4, SBA IN ROOM. PT CLEARED TO DISCHARGE TODAY BY PHYSICIAN. DC PACKED REVIEWED WITH PT; PT REPORTS NO QUESTIONS OR CONCERNS. MEDS CALLED IN TO PHARMACY PER PT REQUEST. DC PACKET SENT WITH PT. PT TO HAVE HOME HEALTH THROUGH [facility]. PT'S DAUGHTER CALLED TO TOWER HELPER PT. IV DC'D WNL. WAITING FOR DAUGHTER IN ROOM AT THIS TIME.
== END 2020-10-09 14:37 | disposition home or self-care (01) ==
LOC: ER 17:05 → MEDS 17:06
PROVIDERS: Emergency Medicine; Family Medicine; Student in an Organized Health Care Education/Training Program; ADMIT Internal Medicine
DX: G93.40 Encephalopathy, unspecified (principal); E72.20 Disorder of urea cycle metabolism, unspecified; N39.0 Urinary tract infection, site not specified; B96.20 Unspecified Escherichia coli [E. coli] as the cause of diseases classified elsewhere; B96.89 Other specified bacterial agents as the cause of diseases classified elsewhere; E11.22 Type 2 diabetes mellitus with diabetic chronic kidney disease; I12.9 Hypertensive chronic kidney disease with stage 1 through stage 4 chronic kidney disease, or unspecified chronic kidney disease; N18.32 Chronic kidney disease, stage 3b; K75.81 Nonalcoholic steatohepatitis (NASH); K74.60 Unspecified cirrhosis of liver; D61.818 Other pancytopenia; Z88.2 Allergy status to sulfonamides; Z88.7 Allergy status to serum and vaccine; Z79.82 Long term (current) use of aspirin; Z85.51 Personal history of malignant neoplasm of bladder; Z93.6 Other artificial openings of urinary tract status; Z87.891 Personal history of nicotine dependence
CPT/HCPCS: 36415; 70450; 71045; 80048; 80053; 81001; 82140; 82550; 82553; 85025; 87077; 87086; 87186; 93005; 93010; 96365; 96366; 96372; 97116; 97161; 97165; 97535; 99285-25; A9270; G0378; G0480; J0696; J1650; J7030

== ENCOUNTER 2020-10-28 13:22 | Observation (INO) | payer OTHER ==
[~2020-10-28] VITALS: Ht 175.3 cm; Wt 80.8 kg
[~2020-10-28 13:22] MED LIST changes: +DOCU100 PO; +DULCOLAX400 MG/5 M PO; +HYDCHL25 PO; +LACT10SY PO; +LEVFLO500 PO; +METO25 PO; +SENNA LAXATIVE8.6 MG PO; +VISBIOME 112.51 EACH PO
[2020-10-28 14:50] LABS: BASOPHILS ABSOLUTE AUTO 0.04 K/mm3 (0.00-0.23); BASOPHILS PERCENT AUTO 1 % (0-2); EOSINOPHILS ABSOLUTE AUTO 0.21 K/mm3 (0.00-0.68); EOSINOPHILS PERCENT AUTO 6 % (0-6); Hematocrit 33.2 % (37.0-53.0); Hemoglobin 11.5 g/dL (13.5-17.5); IMMATURE GRAN ABSOLUTE AUTO 0.01 K/mm3 (0.00-0.10); IMMATURE GRAN PERCENT AUTO 0 % (0-1); LYMPHOCYTES ABSOLUTE AUTO 0.78 K/mm3 (0.84-5.20); LYMPHOCYTES PERCENT AUTO 23 % (21-46); MONOCYTES PERCENT AUTO 9 % (4-13); Mean Corpuscular HGB 32.2 pg (26.0-34.0); Mean Corpuscular HGB Conc 34.6 g/dL (31.5-36.5); Mean Corpuscular Volume 93 fL (80-100); Mean Platelet Volume 12.8 fL (9.1-12.4); NEUTROPHILS ABSOLUTE AUTO 2.01 K/mm3 (1.96-9.15); NEUTROPHILS PERCENT AUTO 60 % (41-73); Platelet Count 76 K/mm3 (150-400); RDW Coefficient Variation 14.7 % (11.7-14.2); RDW Standard Deviation 50.4 fL (35.1-46.3); Red Blood Cell Count 3.57 M/mm3 (4.30-5.90); White Blood Cell Count 3.35 K/mm3 (4.00-11.30)
[2020-10-28 15:08] LABS: Alanine Aminotransfer (ALT/SGP 37 U/L (12-78); Albumin, Blood 2.9 g/dL (3.4-5.0); Alk Phos 169 U/L (50-136); Anion Gap 8 mmol/L (6-16); Aspartate Aminotrans (AST/SGOT 37 U/L (12-37); Bilirubin, Total 1.5 mg/dL (0.1-1.0); Blood Urea Nitrogen 54 mg/dL (8-24); Bun/Creatinine Ratio 24.1 (12.0-20.0); CO2, Blood 24 mmol/L (21-32); CPK Creatine Kinase 31 U/L (39-308); Calcium, Blood 8.9 mg/dL (8.5-10.1); Chloride, Blood 110 mmol/L (98-108); Creatinine, Blood 2.24 mg/dL (0.60-1.20); Ethanol (Alcohol), Blood, Med <3 mg/dL; Glomerular Filtration Rate 29 (60-); Glucose, Blood 110 mg/dL (70-99); Magnesium, Blood 2.2 mg/dL (1.6-2.4); Potassium, Blood 3.5 mmol/L (3.5-5.5); Sodium, Blood 142 mmol/L (136-145); Total Protein, Blood 5.9 g/dL (6.4-8.2); Troponin I <0.015 ng/mL (0.000-0.040)
[2020-10-28 15:13] LABS: Creatine Kinase MB <1.0 ng/mL (0.0-3.6); Creatine Kinase MB Index Unable to Calculate (0.0-4.0)
[2020-10-28 15:35] LABS: International Normalized Ratio 1.11; Prothrombin Time Results 11.9 Sec (9.7-11.5)
[2020-10-28 16:32] LABS: Source, Urine Urostomy Bag
[2020-10-28 16:40] LABS: Appearance, Urine Clear (Clear); Bilirubin, Urine Neg (Neg); Blood, Urine 1+ (Neg); Color, Urine Yellow (P-Yellow); Glucose Qualitative, Urine Neg (Neg); Ketones, Urine Neg (Neg); Leukocyte Esterase, Urine Neg (Neg); Nitrite, Urine Neg (Neg); Protein, Urine Neg (Neg); Specific Gravity, Urine 1.005 (1.003-1.022); Urobilinogen, Urine NORM (Normal)
[2020-10-28 16:53] LABS: Red Blood Cells, Urine 0-2 /hpf (0-2)
[2020-10-28 16:54] LABS: Bacteria Mod /hpf; Hyaline Casts 0-2 /lpf (0-2); Squamous Epithelial Cells Not Seen /hpf (Few)
[2020-10-28] MEDS ORDERED: BUME2 PO (17:50)
[2020-10-28] MEDS ORDERED: METO5 PO (17:50)
[2020-10-28] MEDS ORDERED: COLACE100 MG PO (17:51)
[2020-10-28] MEDS ORDERED: CONSTULOSE10 GM/155 PO (17:51)
[2020-10-28] MEDS ORDERED: POTA8 PO (17:52)
[2020-10-28] MEDS ORDERED: LISI5 PO (17:52)
[2020-10-28] MEDS ORDERED: OMEP20ER PO (17:52)
[2020-10-28] MEDS ORDERED: METOPROLOL TART25 MG PO (17:52)
[2020-10-28] MEDS ORDERED: PROBIOTIC PO (18:41)
[2020-10-28] MEDS ORDERED: FURO20 PO (18:43)
--- NOTE | 2020-10-29 03:20 | NUR ---
SHIFT SUMMARY PT HAS RESTED MOST OF THE NIGHT. PT IS STILL VERY CONFUSED A/O TO SELF, BUT IS ABLE TO FOLLOW DIRECTIONS. PT HAS RECEIVED LACTULOSE THIS SHIFT AND HAS HAD A LARGE BM. PT IS DROWSY MOST OF THE SHIFT, BUT AWAKES EASILY TO VERBAL STIMULI. PT DOES NOT CALL WHEN NEEDING ASSISTANCE, AND WILL JUST ATTEMPT TO GET OOB ON HIS OWN. BED ALARM IN PLACE FOR SAFETY. NO ACUTE CHANGES OVERNIGHT. BED IN LOWEST POSITION, CALL LIGHT WITHIN REACH.
[2020-10-29 04:27] LABS: BASOPHILS ABSOLUTE AUTO 0.05 K/mm3 (0.00-0.23); BASOPHILS PERCENT AUTO 1 % (0-2); EOSINOPHILS ABSOLUTE AUTO 0.31 K/mm3 (0.00-0.68); EOSINOPHILS PERCENT AUTO 8 % (0-6); Hematocrit 32.3 % (37.0-53.0); Hemoglobin 11.3 g/dL (13.5-17.5); IMMATURE GRAN PERCENT AUTO 0 % (0-1); LYMPHOCYTES ABSOLUTE AUTO 0.76 K/mm3 (0.84-5.20); LYMPHOCYTES PERCENT AUTO 19 % (21-46); MONOCYTES ABSOLUTE AUTO 0.43 K/mm3 (0.16-1.47); MONOCYTES PERCENT AUTO 11 % (4-13); Mean Corpuscular HGB 32.7 pg (26.0-34.0); Mean Corpuscular Volume 93 fL (80-100); Mean Platelet Volume 11.8 fL (9.1-12.4); NEUTROPHILS ABSOLUTE AUTO 2.36 K/mm3 (1.96-9.15); NEUTROPHILS PERCENT AUTO 60 % (41-73); Platelet Count 80 K/mm3 (150-400); RDW Coefficient Variation 14.8 % (11.7-14.2); RDW Standard Deviation 51.1 fL (35.1-46.3); Red Blood Cell Count 3.46 M/mm3 (4.30-5.90); White Blood Cell Count 3.91 K/mm3 (4.00-11.30)
[2020-10-29 04:49] LABS: Albumin, Blood 2.8 g/dL (3.4-5.0); Bilirubin, Total 2.2 mg/dL (0.1-1.0); Bun/Creatinine Ratio 24.6 (12.0-20.0); Calcium, Blood 8.9 mg/dL (8.5-10.1); Creatinine, Blood 1.91 mg/dL (0.60-1.20); Globulin, Blood 2.9 g/dL (2.2-4.0); Potassium, Blood 3.3 mmol/L (3.5-5.5); Total Protein, Blood 5.7 g/dL (6.4-8.2)
--- NOTE | 2020-10-29 18:11 | NUR ---
SUMMARY/DISCHARGE PT DISCHARGED TO HOME, PT VERBALIZED UNDERSTANDING OF DISCHARGE INSTRUCTIONS REGARDING MEDS AND FOLLOW UP, CAB RIDE HOME ARRANGED, PT TAKEN OUT SAFELY VIA WHEELCHAIR
== END 2020-10-29 17:59 | disposition home health service (06) ==
LOC: ER 13:22 → MEDS 13:23 → ENPENDDIS 10-29 16:57 → MEDS 10-29 17:59
PROVIDERS: Emergency Medicine; ADMIT Family Medicine
DX: K72.90 Hepatic failure, unspecified without coma (principal); N17.9 Acute kidney failure, unspecified; K74.60 Unspecified cirrhosis of liver; K75.81 Nonalcoholic steatohepatitis (NASH); E11.22 Type 2 diabetes mellitus with diabetic chronic kidney disease; I12.9 Hypertensive chronic kidney disease with stage 1 through stage 4 chronic kidney disease, or unspecified chronic kidney disease; N18.30 Chronic kidney disease, stage 3 unspecified; C67.9 Malignant neoplasm of bladder, unspecified; D61.818 Other pancytopenia; D64.9 Anemia, unspecified; R53.1 Weakness; Z79.82 Long term (current) use of aspirin; Z87.891 Personal history of nicotine dependence; Z90.6 Acquired absence of other parts of urinary tract; Z88.7 Allergy status to serum and vaccine; Z88.2 Allergy status to sulfonamides
CPT/HCPCS: 36415; 71045; 76770; 80053; 81001; 82140; 82550; 82553; 83605; 83690; 83735; 83880; 84145; 84484; 85025; 85610; 87077; 87086; 87186; 93005; 93010; 97110; 97162; 97165; 97535; 99285-25; A9270; G0480; J2405; J7120

== ENCOUNTER 2020-11-18 23:11 | Emergency (ER) | payer OTHER ==
[~2020-11-18] VITALS: Ht 172.7 cm; Wt 80.3 kg
[~2020-11-18 23:11] MED LIST changes: +BUME2 PO; +COLACE100 MG PO; +CONSTULOSE10 GM/155 PO; +METO5 PO; +METOPROLOL TART25 MG PO; +PROBIOTIC PO
[2020-11-19 01:50] LABS: BASOPHILS ABSOLUTE AUTO 0.08 K/mm3 (0.00-0.23); BASOPHILS PERCENT AUTO 1 % (0-2); EOSINOPHILS ABSOLUTE AUTO 0.31 K/mm3 (0.00-0.68); EOSINOPHILS PERCENT AUTO 5 % (0-6); Hematocrit 38.4 % (37.0-53.0); Hemoglobin 13.2 g/dL (13.5-17.5); IMMATURE GRAN ABSOLUTE AUTO 0.01 K/mm3 (0.00-0.10); IMMATURE GRAN PERCENT AUTO 0 % (0-1); LYMPHOCYTES ABSOLUTE AUTO 0.99 K/mm3 (0.84-5.20); LYMPHOCYTES PERCENT AUTO 17 % (21-46); MONOCYTES ABSOLUTE AUTO 0.45 K/mm3 (0.16-1.47); MONOCYTES PERCENT AUTO 8 % (4-13); Mean Corpuscular HGB Conc 34.4 g/dL (31.5-36.5); Mean Corpuscular Volume 93 fL (80-100); NEUTROPHILS ABSOLUTE AUTO 4.02 K/mm3 (1.96-9.15); NEUTROPHILS PERCENT AUTO 69 % (41-73); Platelet Count 99 K/mm3 (150-400); RDW Coefficient Variation 13.6 % (11.7-14.2); RDW Standard Deviation 46.4 fL (35.1-46.3); Red Blood Cell Count 4.13 M/mm3 (4.30-5.90); White Blood Cell Count 5.86 K/mm3 (4.00-11.30)
[2020-11-19 01:56] LABS: Mean Platelet Volume 13.1 fL (9.1-12.4)
[2020-11-19 02:04] LABS: Albumin, Blood 3.3 g/dL (3.4-5.0); Albumin/Globulin Ratio 0.9 (0.8-1.8); Bun/Creatinine Ratio 19.9 (12.0-20.0); Calcium, Blood 9.6 mg/dL (8.5-10.1); Creatinine, Blood 3.41 mg/dL (0.60-1.20); Globulin, Blood 3.6 g/dL (2.2-4.0); Potassium, Blood 3.4 mmol/L (3.5-5.5); Total Protein, Blood 6.9 g/dL (6.4-8.2)
[2020-11-19 03:27] LABS: Source, Urine Catheter
[2020-11-19 03:29] LABS: Bilirubin, Urine Neg (Neg); Blood, Urine 4+ (Neg); Glucose Qualitative, Urine Neg (Neg); Ketones, Urine Neg (Neg); Leukocyte Esterase, Urine 2+ (Neg); Nitrite, Urine Neg (Neg); Protein, Urine 1+ (Neg); Urobilinogen, Urine NORM (Normal)
[2020-11-19 03:41] LABS: Appearance, Urine Hazy (Clear); Color, Urine Yellow (P-Yellow)
[2020-11-19 03:43] LABS: Amorphous Light (0-Heavy); Bacteria Mod /hpf; Red Blood Cells, Urine 0-2 /hpf (0-2); Squamous Epithelial Cells Not Seen /hpf (Few); Triple Phosphate Crystals Many /hpf
== END 2020-11-19 06:18 | disposition home or self-care (01) ==
LOC: ER 23:11
PROVIDERS: Physician Assistant
DX: N17.9 Acute kidney failure, unspecified (principal); E11.22 Type 2 diabetes mellitus with diabetic chronic kidney disease; N18.30 Chronic kidney disease, stage 3 unspecified; I12.9 Hypertensive chronic kidney disease with stage 1 through stage 4 chronic kidney disease, or unspecified chronic kidney disease; Z85.51 Personal history of malignant neoplasm of bladder; Z88.7 Allergy status to serum and vaccine; Z88.2 Allergy status to sulfonamides; Z79.899 Other long term (current) drug therapy; Z79.82 Long term (current) use of aspirin; Z87.891 Personal history of nicotine dependence
CPT/HCPCS: 36415; 80053; 81001; 82140; 85025; 87086; 99283; A9270; J7120